=== PATIENT | male | born 1955 | race African-American/Black ===

== ENCOUNTER 2019-07-07 10:53 | Emergency (ER) | payer OTHER, SELFPAY ==
[2019-07-07 11:16] VITALS: BP 203/127; PULSE 109; RESP 16; TEMP 36.3; O2SAT 99; BMI 21.5
--- NOTE | 2019-07-07 11:44 | ED.LOWEXIN ---
HPI - Extremity Injury (Lower) General Chief Complaint: Extremity Injury, Lower Stated Complaint: leg pain,skin is drying up Time Seen by Provider: 07/07/19 11:38 Source: patient Mode of arrival: Ambulatory Limitations: no limitations History of Present Illness HPI Narrative: Patient is a 63-year-old male. Is followed in the [place] system. He does have a history of HIV. He is taking antiretrovirals. He states that he is currently taking his medicines. He does not know when his last viral load was done. Does not know when his last CD4 count was. He does have a follow-up with his primary doctor and his HIV provider at the beginning of next month which is next week. He comes the emergency department today for swelling and sores and redness to his lower extremities. He states these have been going on for the past several months. Does have some pain and some areas. No problems breathing. No trauma. Does have a history of hypertension but does not know the medicines that he is taking. Related Data Previous Rx's Medication Instructions Recorded amlodipine 10 mg PO DAILY #30 tab 07/07/19 Review of Systems Constitutional Constitutional: Denies fever(s) Cardiovascular Cardiovascular: Denies chest pain and Denies dyspnea Respiratory Respiratory: Denies dyspnea Gastrointestinal Gastrointestinal: Denies abdominal pain Musculoskeletal Musculoskeletal: Denies tingling Comments: Pain in the lower legs Integumentary/Breasts Comments: Sores in the lower legs Neurologic Neurologic: Denies burning sensations, Denies confusion, Denies tingling and Denies paresthesias Psychiatric Psychiatric: Denies confusion Hematologic/Lymphatic Hematologic/Lymphatic: Denies easy bleeding and Denies easy bruising FOR[facility]LY [facility], LAT[facility] Medical History HIV (human immunodeficiency virus infection) (Acute) Hypertension (Acute) Social History Smoking Status: Never smoker Social History Smoking Status: Never smoker Exam Initial Vital Signs Initial Vital Signs: Vital Signs Temperature 97.4 F L 07/07/19 11:16 Pulse Rate 109 H 07/07/19 11:16 Respiratory Rate 16 07/07/19 11:16 Blood Pressure 203/127 H 07/07/19 11:16 Pulse Oximetry 99 07/07/19 11:16 Const General: cooperative, comfortable and well developed Orientation: alert, awake and oriented x3 HENMT Head: normal to inspection and normocephalic Resp Effort & Inspection: normal respiratory effort Cardio Rate: regular rate Skin Other: Patient with redness to bilateral lower extremities distal to the knees to just distal to the ankles. He has several small superficial ulcerations to the area. Is not warm to the touch. No drainage. Neuro Cognition: normal cognition Speech: speech normal Sensory Exam: no sensory deficits noted Extrem Other: Mild swelling to bilateral lower extremities from the knees to the ankles Psych Appearance: grossly normal and well kempt Course Orders Ordered: ED Orders 07/07/19 11:46 Wound Culture and Gram Stain Stat 07/07/19 11:47 Wound Culture and Gram Stain Stat 07/07/19 12:00 Complete Blood Count AUTO DIFF Stat Comprehensive Metabolic Panel Stat Lactate (Lactic Acid) Stat Lipase Stat Procalcitonin Stat 07/07/19 12:37 Blood Culture Stat Discontinued Medications Bacitracin (Bacitracin) 1 applic TOP NOW ONE Stop: 07/07/19 13:24 Last Admin: 07/07/19 13:54 Dose: 1 applic Documented by: JADEN Vital Signs Vital signs: Vital Signs - 8 hr 07/07/19 11:16 07/07/19 13:49 Temperature 97.4 F L Pulse Rate 109 H 83 Respiratory Rate 16 16 Blood Pressure 203/127 H Blood Pressure [Left Arm] 150/135 H Pulse Oximetry 99 98 MDM - Extremity Injury (Lower) Lab Data Attestation: I reviewed the patient's lab results. Result diagrams: 07/07/19 12:00 07/07/19 12:00 Labs: Lab Results 07/07/19 07/07/19 07/07/19 Range/Units 12:00 12:00 12:00 WBC 4.1 L (4.5-11.0) X10^3/uL RBC 5.10 (4.5-5.9) X10^6/uL Hgb 15.5 (13.5-17.5) g/dL Hct 44.7 (41-53) % MCV 87.7 (80-100) fL MCH 30.4 (26-34) PG MCHC 34.6 (30-36) % RDW 14.4 (11.6-14.8) % Plt Count 256 (150-400) X10^3/uL Neut % (Auto) 74.1 (50-75) % Lymph % (Auto) 12.8 L (25-40) % [place] % (Auto) 8.9 (3-14) % Eos % (Auto) 2.8 (2-4) % Baso % (Auto) 1.4 (0-2) % Neut # (Auto) 3100 (8311-9645) /uL Lymph # (Auto) 500 L (3054-5852) /uL [place] # (Auto) 400 (0-900) /uL Eos # (Auto) 100 (0-450) /uL Baso # (Auto) 100 (0-100) /uL Sodium 143 (137-145) mmol/L Potassium 3.8 (3.4-5.1) mmol/L Chloride 102 (98-107) mmol/L Carbon Dioxide 29 (22-32) mmol/L BUN 14 (9-20) mg/dL Creatinine 1.40 H (0.66-1.25) mg/dL Estimated GFR 51.0 L (>60) mL/min BUN/Creatinine Ratio 10.0 (6-22) Glucose 97 (80-110) mg/dL Lactate (0.7-2.1) mmol/L Calcium 9.8 (8.4-10.2) mg/dL Total Bilirubin 0.4 (0.2-1.3) mg/dL AST 35 (17-59) IU/L ALT 29 (21-72) IU/L Alkaline Phosphatase 170 H (38-126) U/L Total Protein 8.3 H (6.3-8.2) g/dL Albumin 4.4 (3.5-5.0) g/dL Globulin 3.9 (1.7-4.1) g/dL Albumin/Globulin Ratio 1.1 (1.0-2.8) Lipase 155 (23-300) U/L Procalcitonin < 0.05 (<0.5) ng/mL 07/07/19 Range/Units 12:00 WBC (4.5-11.0) X10^3/uL RBC (4.5-5.9) X10^6/uL Hgb (13.5-17.5) g/dL Hct (41-53) % MCV (80-100) fL MCH (26-34) PG MCHC (30-36) % RDW (11.6-14.8) % Plt Count (150-400) X10^3/uL Neut % (Auto) (50-75) % Lymph % (Auto) (25-40) % [place] % (Auto) (3-14) % Eos % (Auto) (2-4) % Baso % (Auto) (0-2) % Neut # (Auto) (1993-7699) /uL Lymph # (Auto) (3907-1164) /uL [place] # (Auto) (0-900) /uL Eos # (Auto) (0-450) /uL Baso # (Auto) (0-100) /uL Sodium (137-145) mmol/L Potassium (3.4-5.1) mmol/L Chloride (98-107) mmol/L Carbon Dioxide (22-32) mmol/L BUN (9-20) mg/dL Creatinine (0.66-1.25) mg/dL Estimated GFR (>60) mL/min BUN/Creatinine Ratio (6-22) Glucose (80-110) mg/dL Lactate 1.1 (0.7-2.1) mmol/L Calcium (8.4-10.2) mg/dL Total Bilirubin (0.2-1.3) mg/dL AST (17-59) IU/L ALT (21-72) IU/L Alkaline Phosphatase (38-126) U/L Total Protein (6.3-8.2) g/dL Albumin (3.5-5.0) g/dL Globulin (1.7-4.1) g/dL Albumin/Globulin Ratio (1.0-2.8) Lipase (23-300) U/L Procalcitonin (<0.5) ng/mL MDM Narrative Medical decision making narrative: Patient has bilateral lower extremity changes which are more consistent with peripheral vascular disease versus cellulitis. His lactate was normal. Procalcitonin was normal. He states that he is still taking his anti-retroviral medications. States he has an appointment with his primary doctor and his HIV provider next week. Cultures were obtained from 1 wound on the right lower extremity and also on the left lower extremity however I feel we will hold on any antibiotics for now. He was given supplies to help him bandages legs. He was given return precautions. He does have a history of hypertension. He has been out of his amlodipine for the past several weeks. I will refill this. He states that he has prescriptions for all of his other medicines. Discharge Plan Departure Patient Disposition: Home Clinical Impression: Hypertension Qualifiers: Hypertension type: unspecified Qualified Code(s): I10 - Essential (primary) hypertension Skin ulcer Qualifiers: Non-pressure ulcer stage: limited to breakdown of skin Qualified Code(s): L98.491 - Non-pressure chronic ulcer of skin of other sites limited to breakdown of skin Instructions: DI for Pressure Sores Activity Restrictions/Additional Instructions: Start taking the blood pressure medication as directed. Keep all of your scheduled medical appointments. On Wednesday you can contact the wound Care Clinic here at the [facility] at [phone] however you may have to wait into you get a referral placed by your primary provider. It is important that she follow up with her primary provider next week as directed. Return to the emergency department for any new or worsening symptoms. You can shower like normal you can use soap and water like normal. Use the bandages that you were given here in the ER rather than tissue paper. You can take Tylenol and/or ibuprofen for any discomfort. Prescriptions: New amlodipine 10 mg tablet 10 mg PO DAILY Qty: 30 RF: 0
[2019-07-07 12:22] LABS: Add Manual Diff / Slide Review NO; Basophils Absolute Auto 100 /uL (0-100); Basophils Percent Auto 1.4 % (0-2); Eosinophils Absolute Auto 100 /uL (0-450); Eosinophils Percent Auto 2.8 % (2-4); Hematocrit 44.7 % (41-53); Hemoglobin 15.5 g/dL (13.5-17.5); Lymphocytes Absolute Auto 500 /uL (1100-4500); Lymphocytes Percent Auto 12.8 % (25-40); Mean Corpuscular HGB Conc 34.6 % (30-36); Mean Corpuscular Hemoglobin 30.4 PG (26-34); Mean Corpuscular Volume 87.7 fL (80-100); Monocytes Absolute Auto 400 /uL (0-900); Monocytes Percent Auto 8.9 % (3-14); Neutrophils Absolute Auto 3100 /uL (1500-7000); Neutrophils Percent Auto 74.1 % (50-75); Platelet Count 256 X10^3/uL (150-400); Red Cell Distribution Width 14.4 % (11.6-14.8); White Blood Cell Count 4.1 X10^3/uL (4.5-11.0)
--- NOTE | 2019-07-07 12:27 | PC.NURSE ---
Patient has acute on chronic lower extremity wounds secondary to scratching eczema. Has completed abx in past for wounds. Presents with bilaterally homemade dressing of paper around legs which is crusted to skin. Soaking legs bilaterally with warm washcloths to assist in removal of old dressing
[2019-07-07 12:29] LABS: Alanine Aminotransferase 29 IU/L (21-72); Albumin 4.4 g/dL (3.5-5.0); Albumin Globulin Ratio 1.1 (1.0-2.8); Alkaline Phosphatase 170 U/L (38-126); Aspartate Aminotransferase 35 IU/L (17-59); Bilirubin Total 0.4 mg/dL (0.2-1.3); Blood Urea Nitrogen 14 mg/dL (9-20); Calcium 9.8 mg/dL (8.4-10.2); Carbon Dioxide 29 mmol/L (22-32); Chloride 102 mmol/L (98-107); Globulin 3.9 g/dL (1.7-4.1); Glucose 97 mg/dL (80-110); HEMOLYSIS < 15 (0-50); Lipase 155 U/L (23-300); Potassium 3.8 mmol/L (3.4-5.1); Sodium 143 mmol/L (137-145); Total Protein 8.3 g/dL (6.3-8.2)
[2019-07-07 12:30] LABS: Lactate (Lactic Acid) 1.1 mmol/L (0.7-2.1)
[2019-07-07 12:49] LABS: Procalcitonin < 0.05 ng/mL (<0.5)
--- NOTE | 2019-07-07 13:24 | PC.NURSE ---
legs bilaterally cleaned, scrubbed off old dry tissue from legs. Patient tolerated well
[2019-07-07 13:49] VITALS: BP 150/135; PULSE 83; RESP 16; O2SAT 98
[2019-07-07] MEDS: BACITRACIN OINT 0.9 GM PCKT 1 APPLIC TOP (13:54)
--- NOTE | 2019-07-07 13:54 | PC.NURSE ---
provider aware of patient BP. Patient has not been taking antihypertensives
[2019-07-08 06:42] LABS: Enterococcus species Not Detected (Not Detect); Listeria monocytogenes Not Detected (Not Detect)
[2019-07-08 06:43] LABS: Acinetobacter baumannii Not Detected (Not Detect); Enterobacteriaceae species Not Detected (Not Detect); Methicillin-resistant gene Detected (Not Detect); Streptococcus agalactiae (Gr B Not Detected (Not Detect); Streptococcus pneumonia Not Detected (Not Detect); Streptococcus pyogenes (Gr A) Not Detected (Not Detect); Streptococcus species Not Detected (Not Detect)
--- NOTE | 2019-07-08 06:43 | PC.NURSE ---
Addendum entered by Sheree Ortega R.N. 07/08/19 07:12: I also notified DR Marlow. Original Note: Lab notified me of one positive blood culture with staph aureus just now.DR Boswell notified.
[2019-07-08 06:44] LABS: Candida albicans Not Detected (Not Detect); Candida glabrata Not Detected (Not Detect); Candida krusei Not Detected (Not Detect); Candida parapsilosis Not Detected (Not Detect); Candida tropicalis Not Detected (Not Detect); E. coli Not Detected (Not Detect); Enterobacter cloacae complex Not Detected (Not Detect); Haemophilus influenzae Not Detected (Not Detect); Neisseria meningitidis Not Detected (Not Detect); Proteus species Not Detected (Not Detect); Pseudomonas aeruginosa Not Detected (Not Detect); Serratia marcescens Not Detected (Not Detect)
--- NOTE | 2019-07-08 09:32 | PC.NURSE ---
Called number of record and spoke to Pt's mother. Pt's mother states she has not seen him in a few days. She has no other point of contact for him. Encouraged her to relay message to have pt return to ED for further care.
== END 2019-07-07 14:48 | disposition home or self-care (01) ==
PROVIDERS: Emergency Provider Emergency Medicine
DX: I10 Essential (primary) hypertension (principal); L98.491 Non-pressure chronic ulcer of skin of other sites limited to breakdown of skin
CPT/HCPCS: 36415; 80053; 83605; 83690; 84145; 85025; 87040; 87070; 87077; 87147; 87150; 87186; 87205; 99283

== ENCOUNTER 2019-07-08 10:14 | Emergency (ER) | payer OTHER, SELFPAY ==
[2019-07-08 10:26] VITALS: BP 199/140; PULSE 88; RESP 18; TEMP 36.7; O2SAT 98
--- NOTE | 2019-07-08 10:30 | DI.RAD.S_ITS ---
PROCEDURE: XR CHEST 1V INDICATIONS: suspected sepsis TECHNIQUE: One view of the chest was acquired. COMPARISON: None. FINDINGS: Surgical changes and devices: None. Lungs and pleura: Lungs are clear. No pleural effusions or pneumothorax. Mediastinum: Mediastinal contours appear normal. Heart size is normal. Bones and chest wall: No suspicious bony lesions. Overlying soft tissues appear unremarkable. IMPRESSION: 1. No acute cardiopulmonary disease. Dictated by: Amos Salazar M.D. on 07/08/2019 at 9:59 Approved by: Amos Salazar M.D. on 07/08/2019 at 10:00
[2019-07-08 10:59] LABS: Add Manual Diff / Slide Review NO; Basophils Absolute Auto 0 /uL (0-100); Basophils Percent Auto 1.1 % (0-2); Eosinophils Absolute Auto 100 /uL (0-450); Hematocrit 42.6 % (41-53); Hemoglobin 14.8 g/dL (13.5-17.5); Lymphocytes Absolute Auto 700 /uL (1100-4500); Lymphocytes Percent Auto 17.9 % (25-40); Mean Corpuscular HGB Conc 34.9 % (30-36); Mean Corpuscular Hemoglobin 30.6 PG (26-34); Mean Corpuscular Volume 87.8 fL (80-100); Monocytes Absolute Auto 500 /uL (0-900); Neutrophils Absolute Auto 2700 /uL (1500-7000); Platelet Count 267 X10^3/uL (150-400); Red Blood Cell Count 4.85 X10^6/uL (4.5-5.9); Red Cell Distribution Width 14.6 % (11.6-14.8)
[2019-07-08 11:06] LABS: INR 1.1 (0.9-1.3); Prothrombin Time 12.8 SECONDS (10.1-12.7)
[2019-07-08 11:08] LABS: PTT Partial Thromboplastin Tim 36 SECONDS (26.4-36.2)
--- NOTE | 2019-07-08 11:26 | ED_ITS ---
HPI - Recheck/Abnormal Lab/Rx General Chief Complaint: Recheck/Abnormal Lab/Rx Stated Complaint: COMING BACK FOR RESULTS ON TESTS Time Seen by Provider: 07/08/19 10:45 Source: patient Mode of arrival: Ambulatory Limitations: no limitations History of Present Illness HPI narrative: Patient is a 63-year-old male HIV positive and hypertension presenting upon our request. He was seen evaluated here with hypertension and chronic lower extremity venous stasis however 1 of the 2 blood cultures returned MRSA positive. He states that his legs have been hurting more over the last few days they do drain some. He has not had any fevers or chills. He has been out of his blood pressure medication for at least 4 or 5 days but states that he is compliant with his HIV medications. His blood pressure is noted to be elevated he is having some headache he has no chest pain or shortness of breath. He is currently afebrile. MD complaint: wound re-check Related Data Home Medications Medication Instructions Recorded Confirmed Lactobacillus acidophilus 1 cap PO BID 07/07/19 07/07/19 cholecalciferol (vitamin D3) 1,000 unit PO DAILY 07/07/19 07/07/19 [Vitamin D3] [id number] alafen 1 tab PO DAILY 07/07/19 07/07/19 [Genvoya] hydrophilic cream 1 applic TOPICAL DAILY 07/07/19 07/07/19 hydroxyzine HCl 25 mg PO QID PRN 07/07/19 07/07/19 nicotine 1 patch TRANSDERMAL Q24H 07/07/19 07/07/19 Previous Rx's Medication Instructions Recorded amlodipine 10 mg PO DAILY #30 tab 07/07/19 Allergies Allergy/AdvReac Type Severity Reaction Status Date / Time No Known Drug Allergies Allergy Verified 07/07/19 14:30 Review of Systems Review of Systems ROS Unobtainable: All systems reviewed & are unremarkable except as noted in HPI and below Constitutional Constitutional: Denies chills, Denies fever(s), Denies lethargy and Denies weakness Eyes Eyes: Denies change in vision, Denies eye discharge, Denies irritation and Denies loss of vision ENT Ears, Nose, Mouth, and Throat: Denies change in voice, Denies neck pain and Denies sore throat Cardiovascular Cardiovascular: Denies chest pain, Denies irregular heart rhythm, Denies lightheadedness, Denies palpitations, Denies dyspnea, Denies dyspnea on exertion and Denies orthopnea Respiratory Respiratory: Denies cough, Denies dyspnea, Denies dyspnea on exertion and Denies wheezing Genitourinary Genitourinary: Denies hematuria, Denies flank pain, Denies urinary incontinence and Denies urinary urgency Musculoskeletal Musculoskeletal: Denies neck pain Integumentary/Breasts Skin/Breast: Reports system reviewed and no additional complaints, except as docu Neurologic Neurologic: Denies loss of vision and Denies weakness Endocrine Endocrine: Denies palpitations Allergic/Immunologic Allergic/Immunologic: Denies wheezing [facility] Medical History HIV (human immunodeficiency virus infection) (Acute) Hypertension (Acute) Social History Smoking Status: Never smoker Social History Smoking Status: Never smoker Exam Initial Vital Signs Initial Vital Signs: Vital Signs Temperature 98.0 F 07/08/19 10:26 Pulse Rate 88 07/08/19 10:26 Respiratory Rate 18 07/08/19 10:26 Blood Pressure 199/140 H 07/08/19 10:26 Pulse Oximetry 98 07/08/19 10:26 GENERAL: Well-appearing, well-nourished and in no acute distress. HEENT: Head atraumatic,EOMI, pupils reactive, face symmetric CARDIOVASCULAR: Regular rate and rhythm without murmurs, rubs or gallops. RESPIRATORY: Breath sounds equal bilaterally, no wheezes rales or rhonchi. ABDOMEN: Soft, nontender. Normoactive bowel sounds all 4 quadrants. No guarding or rebound. EXTREMITIES: Normal range of motion, no clubbing or edema. Neurovascularly intact NEUROLOGICAL: Alert and oriented x4.Normal gait and speech. Cranial nerves II through XII grossly intact. SKIN: Chronic venous stasis 6 scaly skin noted on bilateral lower extremities mildly erythematous no gross pus from sores noted Course Orders Ordered: ED Orders 07/08/19 10:30 XR chest 1V Stat 07/08/19 10:38 Blood Culture Stat 07/08/19 10:42 Complete Blood Count AUTO DIFF Stat Comprehensive Metabolic Panel Stat Lactate (Lactic Acid) Stat Lipase Stat Partial Thromboplastin Time Stat Procalcitonin Stat Prothrombin Time INR Stat 07/08/19 11:43 Urine Microscopic Stat 07/08/19 13:27 [facility] Miscellaneous Stat 07/08/19 13:29 [facility] Miscellaneous Stat Discontinued Medications Amlodipine Besylate (Norvasc) 10 mg PO NOW ONE Stop: 07/08/19 12:41 Last Admin: 07/08/19 12:52 Dose: 10 mg Documented by: SAMUEL Vancomycin HCl (Vancomycin) 1,000 mg in 200 mls @ 200 mls/hr IV NOW ONE Stop: 07/08/19 12:45 Last Infusion: 07/08/19 13:30 Dose: 0 mls/hr Documented by: Admin: 07/08/19 12:16 Dose: 200 mls/hr Documented by: SAMUEL Ketorolac Tromethamine (Toradol) 15 mg IV NOW ONE Stop: 07/08/19 12:49 Last Admin: 07/08/19 12:53 Dose: 15 mg Documented by: SAMUEL Labetalol HCl (Trandate) 5 mg IV NOW ONE Stop: 07/08/19 12:41 Last Admin: 07/08/19 12:52 Dose: 5 mg Documented by: SAMUEL Consultations Consultation #1: Dr. James updated on patient test results and current symptoms requests that patient be transferred to another facility 1 infectious Disease is readily available Time: 13:18 Consultation #2: Dr. Obrien, Infectious disease agrees with transfer admit to hospitalist Time: 13:34 Consultation #3: Dr. cummins hospitalist at [facility] at accepts patient for transfer Time: 13:34 Vital Signs Vital signs: Vital Signs - 8 hr 07/08/19 10:26 07/08/19 12:31 07/08/19 12:52 Temperature 98.0 F Pulse Rate 88 97 H 97 H Respiratory Rate 18 18 Blood Pressure 199/140 H 190/140 H Blood Pressure [Right Arm] 190/140 H Pulse Oximetry 98 97 07/08/19 13:30 07/08/19 14:32 Temperature Pulse Rate 90 91 H Respiratory Rate 16 Blood Pressure 169/125 H Blood Pressure [Right Arm] 174/135 H Pulse Oximetry 96 MDM - Recheck/Abnormal Lab/Rx Lab Data Attestation: I reviewed the patient's lab results. Result diagrams: 07/08/19 10:42 07/08/19 10:42 Labs: Lab Results 07/08/19 07/08/19 07/08/19 Range/Units 10:42 10:42 10:42 WBC 4.0 L (4.5-11.0) X10^3/uL RBC 4.85 (4.5-5.9) X10^6/uL Hgb 14.8 (13.5-17.5) g/dL Hct 42.6 (41-53) % MCV 87.8 (80-100) fL MCH 30.6 (26-34) PG MCHC 34.9 (30-36) % RDW 14.6 (11.6-14.8) % Plt Count 267 (150-400) X10^3/uL Neut % (Auto) 66.0 (50-75) % Lymph % (Auto) 17.9 L (25-40) % [place] % (Auto) 12.0 (3-14) % Eos % (Auto) 3.0 (2-4) % Baso % (Auto) 1.1 (0-2) % Neut # (Auto) 2700 (6875-2709) /uL Lymph # (Auto) 700 L (3976-7233) /uL [place] # (Auto) 500 (0-900) /uL Eos # (Auto) 100 (0-450) /uL Baso # (Auto) 0 (0-100) /uL PT 12.8 H (10.1-12.7) SECONDS INR 1.1 (0.9-1.3) APTT 36 (26.4-36.2) SECONDS Sodium (137-145) mmol/L Potassium (3.4-5.1) mmol/L Chloride (98-107) mmol/L Carbon Dioxide (22-32) mmol/L BUN (9-20) mg/dL Creatinine (0.66-1.25) mg/dL Estimated GFR (>60) mL/min BUN/Creatinine Ratio (6-22) Glucose (80-110) mg/dL Lactate (0.7-2.1) mmol/L Calcium (8.4-10.2) mg/dL Total Bilirubin (0.2-1.3) mg/dL AST (17-59) IU/L ALT (21-72) IU/L Alkaline Phosphatase (38-126) U/L Total Protein (6.3-8.2) g/dL Albumin (3.5-5.0) g/dL Globulin (1.7-4.1) g/dL Albumin/Globulin Ratio (1.0-2.8) Lipase (23-300) U/L Procalcitonin < 0.05 (<0.5) ng/mL Urine RBC (0-5/HPF) Urine WBC (0-5/HPF) Urine Bacteria (None) Ur Culture Indicated? 07/08/19 07/08/19 07/08/19 Range/Units 10:42 10:42 11:43 WBC (4.5-11.0) X10^3/uL RBC (4.5-5.9) X10^6/uL Hgb (13.5-17.5) g/dL Hct (41-53) % MCV (80-100) fL MCH (26-34) PG MCHC (30-36) % RDW (11.6-14.8) % Plt Count (150-400) X10^3/uL Neut % (Auto) (50-75) % Lymph % (Auto) (25-40) % [place] % (Auto) (3-14) % Eos % (Auto) (2-4) % Baso % (Auto) (0-2) % Neut # (Auto) (2862-7259) /uL Lymph # (Auto) (5280-5674) /uL [place] # (Auto) (0-900) /uL Eos # (Auto) (0-450) /uL Baso # (Auto) (0-100) /uL PT (10.1-12.7) SECONDS INR (0.9-1.3) APTT (26.4-36.2) SECONDS Sodium 138 (137-145) mmol/L Potassium 4.0 (3.4-5.1) mmol/L Chloride 99 (98-107) mmol/L Carbon Dioxide 30 (22-32) mmol/L BUN 20 (9-20) mg/dL Creatinine 1.50 H (0.66-1.25) mg/dL Estimated GFR 47.1 L (>60) mL/min BUN/Creatinine Ratio 13.3 (6-22) Glucose 97 (80-110) mg/dL Lactate 1.1 (0.7-2.1) mmol/L Calcium 9.8 (8.4-10.2) mg/dL Total Bilirubin 0.5 (0.2-1.3) mg/dL AST 36 (17-59) IU/L ALT 23 (21-72) IU/L Alkaline Phosphatase 143 H (38-126) U/L Total Protein 7.9 (6.3-8.2) g/dL Albumin 4.1 (3.5-5.0) g/dL Globulin 3.8 (1.7-4.1) g/dL Albumin/Globulin Ratio 1.1 (1.0-2.8) Lipase 115 (23-300) U/L Procalcitonin (<0.5) ng/mL Urine RBC 1-5/hpf (0-5/HPF) Urine WBC None seen (0-5/HPF) Urine Bacteria None seen (None) Ur Culture Indicated? Cult not indicated Urine Dip Bedside Urine Glucose Negative Bedside Urine Bilirubin - Negative Bedside Urine Ketone - Negative Urine Specific [place] 1.015 Bedside Urine Occult Blood +/- Bedside Urine pH 7.0 Bedside Urine Protein + 30 Bedside Urine Urobilinogen - Negative Bedside Urine Nitrite - Negative Bedside Urine Leukocytes - Negative Esterase MDM Narrative Medical decision making narrative: The patient is hemodynamically stable negative lactic acid normal WBC does not appear septic. However he does have 1 confirmed positive MRSA blood cultures. Patient will be transferred to [facility] for Infectious Disease and other further specialtys. His blood pressure remains uncontrolled he is given 1 dose of the blood pressure medication amlodipine and 1 small dose of labetalol. He was complaining of a small headache which has improved after his blood pressure improved. Discharge Plan Departure Patient Disposition: [facility] Clinical Impression: Bacteremia due to methicillin resistant Staphylococcus aureus Discharge Date/Time: 07/08/19 14:40 Prescriptions: No Action amlodipine 10 mg tablet 10 mg PO DAILY Qty: 30 RF: 0 hydroxyzine HCl 25 mg Tablet 25 mg PO QID PRN (Reason: Itching) RF: 0 Lactobacillus acidophilus Capsule 1 cap PO BID RF: 0 nicotine 7 mg/24 hr Patch 24 Hour 1 patch TRANSDERMAL Q24H RF: 0 hydrophilic cream Cream 1 applic TOPICAL DAILY RF: 0 cholecalciferol (vitamin D3) [Vitamin D3] 1,000 unit (25 mcg) Tablet 1,000 unit PO DAILY RF: 0 Genvoya [id number] mg Tablet 1 tab PO DAILY RF: 0
[2019-07-08 11:28] LABS: Lactate (Lactic Acid) 1.1 mmol/L (0.7-2.1)
[2019-07-08 11:29] LABS: Alanine Aminotransferase 23 IU/L (21-72); Albumin 4.1 g/dL (3.5-5.0); Albumin Globulin Ratio 1.1 (1.0-2.8); Alkaline Phosphatase 143 U/L (38-126); Aspartate Aminotransferase 36 IU/L (17-59); BUN Creatinine Ratio 13.3 (6-22); Bilirubin Total 0.5 mg/dL (0.2-1.3); Blood Urea Nitrogen 20 mg/dL (9-20); Calcium 9.8 mg/dL (8.4-10.2); Carbon Dioxide 30 mmol/L (22-32); Chloride 99 mmol/L (98-107); Estimated Glomerular Filt Rate 47.1 mL/min (>60); Globulin 3.8 g/dL (1.7-4.1); Glucose 97 mg/dL (80-110); HEMOLYSIS < 15 (0-50); Lipase 115 U/L (23-300); Sodium 138 mmol/L (137-145); Total Protein 7.9 g/dL (6.3-8.2)
[2019-07-08 11:49] LABS: Procalcitonin < 0.05 ng/mL (<0.5)
[2019-07-08] MEDS: VANCOMYCIN 1,000 MG/200 ML PIGGYBACK 200 MG IV (12:16)
[2019-07-08 12:31] VITALS: BP 190/140; PULSE 97; RESP 18; O2SAT 97
[2019-07-08 12:52] VITALS: BP 190/140; PULSE 97
[2019-07-08] MEDS: LABETALOL 20 MG/4 ML SYRINGE 5 MG IV (12:52)
[2019-07-08] MEDS: AMLODIPINE 2.5 MG TABLET 10 MG PO (12:52)
[2019-07-08] MEDS: KETOROLAC 60 MG/2 ML VIAL 15 MG IV (12:53)
[2019-07-08 12:56] LABS: Bacteria Urine None Seen; WBC Urine None Seen (0-5/HPF)
[2019-07-08 13:17] LABS: Culture Indicated Urine Cult Not Indicated; RBC Urine 1-5/HPF (0-5/HPF)
[2019-07-08 13:30] VITALS: BP 169/125; PULSE 90
[2019-07-08 14:32] VITALS: BP 174/135; PULSE 91; RESP 16; O2SAT 96
== END 2019-07-08 14:40 | disposition short-term general hospital (02) ==
PROVIDERS: Emergency Provider Emergency Medicine
DX: R78.81 Bacteremia (principal); A49.02 Methicillin resistant Staphylococcus aureus infection, unspecified site; Z21 Asymptomatic human immunodeficiency virus [HIV] infection status
CPT/HCPCS: 36415; 71045; 80053; 81003; 81015; 83605; 83690; 84145; 85025; 85610; 85730; 87040; 96365; 96375; 99283; 99284; J1885

== ENCOUNTER 2021-07-27 17:40 | Emergency (ER) | payer OTHER, SELFPAY ==
[2021-07-27] VITALS (17 sets, daily range): BP systolic 168–209; BP diastolic 114–144; PULSE 85–107; RESP 15–25; TEMP 36.2–36.3; O2SAT 91–98; BMI 23.8
--- NOTE | 2021-07-27 17:49 | DI.RAD.S_ITS ---
PROCEDURE: XR CHEST 1V INDICATIONS: chest pain TECHNIQUE: One view of the chest was acquired. COMPARISON: [facility], CR, XR CHEST 1V, 07/08/2019, 10:41. FINDINGS: Surgical changes and devices: None. Lungs and pleura: Lungs are clear. No pleural effusions or pneumothorax. Mediastinum: Mediastinal contours appear normal. Heart size is normal. Bones and chest wall: No suspicious bony lesions. Overlying soft tissues appear unremarkable. IMPRESSION: No acute cardiopulmonary disease. Dictated by: Dannielle Flores M.D. on 07/27/2021 at 18:23 Approved by: Dannielle Flores M.D. on 07/27/2021 at 18:23
--- NOTE | 2021-07-27 18:09 | ED_ITS ---
HPI - Overdose General Chief Complaint: Toxicology Problem Stated Complaint: Overdose Time Seen by Provider: 07/27/21 17:49 Source: patient Mode of arrival: Family Vehicle Limitations: no limitations History of Present Illness HPI Narrative: 65M smoker with hypertension presents by EMS for evaluation of an accidental overdose. Patient reports that a friend offered a [place] smoke something off his pipe which she later found out was fentanyl. He felt quite good briefly and then gradually became unresponsive and stopped breathing. EMS was activated and the call when out as a CPR in progress, he was promptly given Narcan and woke up quickly. He denies any headache or blurred vision. He has no chest pain or shortness of breath. He denies any nausea, vomiting or diarrhea. He denies any difficulty in breathing and is otherwise well and free of complaint. He has not taken his medications yet tonight Related Data Home Medications Medication Instructions Recorded Confirmed Lactobacillus acidophilus 1 cap PO BID 07/07/19 07/07/19 cholecalciferol (vitamin D3) 25 1,000 unit PO DAILY 07/07/19 07/07/19 mcg (1,000 unit) tablet (Vitamin D3) elviteg 150 mg-cob 150 mg-emtricit 1 tab PO DAILY 07/07/19 07/07/19 200 mg-tenofo alafenam 10 mg tablet (Genvoya) hydrophilic cream 1 applic TOPICAL DAILY 07/07/19 07/07/19 hydroxyzine HCl 25 mg tablet 25 mg PO QID PRN 07/07/19 07/07/19 nicotine 7 mg/24 hr daily 1 patch TRANSDERMAL Q24H 07/07/19 07/07/19 transdermal patch Previous Rx's Medication Instructions Recorded amlodipine 10 mg tablet 10 mg PO DAILY #30 tab 07/07/19 Allergies Allergy/AdvReac Type Severity Reaction Status Date / Time No Known Drug Allergies Allergy Verified 07/07/19 14:30 Review of Systems Review of Systems Narrative: GENERAL: Denies chills, fatigue, malaise, fever, sweats. HEENT: Denies sinus pain, ear pain, sore throat, difficulty swallowing, dizziness. RESPIRATORY: Denies dyspnea, cough, wheezing, hemoptysis, sputum. CARDIOVASCULAR: Denies chest pain, palpitations, orthopnea, edema, GASTROINTESTINAL: Denies nausea, vomiting, abdominal pain, diarrhea, constipation, melena. : Denies dysuria, frequency, incontinence, hematuria, urinary retention. MUSCULOSKELETAL: denies weakness, joint pain, or bony pain SKIN: Denies rash, skin lesions, or other NEUROLOGIC: Denies weakness, headache, numbness, change in speech, confusion, seizures, incoordination. PSYCHIATRIC: No concerning psychosocial issues. 12 point review of systems is negative except for those stated above Patient History Medical History HIV (human immunodeficiency virus infection) Hypertension Social History Smoking Status: Never smoker Smoking Status: Never smoker alcohol intake frequency: holidays/special occasions only Substance Use Type: does not use Exam Narrative Exam Narrative: GENERAL: [65 year old patient appears stated age. Well-developed patient, in mild distress. HEAD: Atraumatic. Normocephalic. EYES: Pupils equal round and reactive. Extraocular motions intact. No scleral icterus. No injection or drainage. ENT: Nose without bleeding, purulent drainage. Throat without erythema, tonsillar hypertrophy or exudate. Airway patent. NECK: Trachea midline. Non tender CARDIOVASCULAR: Regular rate and rhythm without murmurs, gallops, or rubs. RESPIRATORY: Clear to auscultation. Breath sounds equal bilaterally. No wheezes, rales, or rhonchi. GASTROINTESTINAL: Abdomen soft, non-tender, nondistended. EXTREMITIES: No edema or joint tenderness. BACK: Nontender without deformity or crepitance. No flank tenderness. NEURO: AOx3. SKIN: No rash or erythema of visible areas Initial Vital Signs Initial Vital Signs: Vital Signs Temperature 97.3 F L 07/27/21 17:43 Pulse Rate 107 H 07/27/21 17:43 Respiratory Rate 18 07/27/21 17:43 Blood Pressure 209/144 H 07/27/21 17:43 Pulse Oximetry 95 07/27/21 17:43 Course Orders Ordered: ED Orders 07/27/21 18:15 Urine Drug Screen, Rapid Stat Discontinued Medications Labetalol HCl (Labetalol 20 Mg/4 Ml Syringe) 10 mg IV NOW ONE Stop: 07/27/21 19:34 Last Admin: 07/27/21 19:38 Dose: 10 mg Documented by: RYANNE Reevaluation(s) Reevaluation #1: Patient continues to rest comfortably, easily arousable, speaking clearly in able to ambulate a straight line without difficulty. Though his blood pressure is elevated he continues to be completely asymptomatic. He has not yet taken his nighttime medications. Vital Signs Vital signs: Vital Signs - 8 hr 07/27/21 19:15 07/27/21 19:30 07/27/21 19:38 Temperature Pulse Rate 101 H 99 H Respiratory Rate 21 25 H Blood Pressure 170/122 H 172/122 H Pulse Oximetry 96 94 07/27/21 19:42 07/27/21 19:45 07/27/21 19:50 Temperature Pulse Rate 98 H 94 H 89 Respiratory Rate 21 16 15 Blood Pressure 180/121 H 168/114 H 185/130 H Pulse Oximetry 96 94 92 07/27/21 19:55 07/27/21 20:00 07/27/21 20:11 Temperature 97.2 F L Pulse Rate 87 85 Respiratory Rate 19 17 Blood Pressure 172/116 H 176/123 H Pulse Oximetry 91 MDM - Overdose Lab Data Result diagrams: 07/27/21 17:45 07/27/21 17:45 Labs: Lab Results 07/27/21 07/27/21 07/27/21 Range/Units 17:45 17:45 18:15 WBC 4.5 (4.5-11.0) X10^3/uL RBC 5.26 (4.5-5.9) X10^6/uL Hgb 15.9 (13.5-17.5) g/dL Hct 46.9 (41-53) % MCV 89.1 (80-100) fL MCH 30.3 (26-34) PG MCHC 34.0 (30-36) % RDW 15.4 H (11.6-14.8) % Plt Count 219 (150-400) X10^3/uL Neut % (Auto) 64.8 (50-75) % Lymph % (Auto) 18.5 L (25-40) % [place] % (Auto) 11.6 (3-14) % Eos % (Auto) 4.2 H (2-4) % Baso % (Auto) 0.9 (0-2) % Neut # (Auto) 2900 (0163-6401) /uL Lymph # (Auto) 800 L (9241-4817) /uL [place] # (Auto) 500 (0-900) /uL Eos # (Auto) 200 (0-450) /uL Baso # (Auto) 0 (0-100) /uL RBC Morphology Normal morphology Sodium 144 (137-145) mmol/L Potassium 4.2 (3.4-5.1) mmol/L Chloride 105 (98-107) mmol/L Carbon Dioxide 27 (22-32) mmol/L BUN 16 (9-20) mg/dL Creatinine 1.88 H (0.66-1.25) mg/dL Estimated GFR 36.1 L (>60) mL/min BUN/Creatinine Ratio 8.5 (6-22) Glucose 79 L (80-110) mg/dL Calcium 10.3 H (8.4-10.2) mg/dL Total Bilirubin 0.5 (0.2-1.3) mg/dL AST 36 (17-59) IU/L ALT 38 (<50) IU/L Alkaline Phosphatase 150 H (38-126) U/L Total Creatine Kinase 149 (55-170) U/L CK-MB (CK-2) 2.07 (<2.37) ng/mL CK-MB (CK-2) Rel Index 1.4 L (1.5-5.0) % Troponin I 0.017 (0.01-0.034) ng/mL Total Protein 8.7 H (6.3-8.2) g/dL Albumin 5.0 (3.5-5.0) g/dL Globulin 3.7 (1.7-4.1) g/dL Albumin/Globulin Ratio 1.4 (1.0-2.8) Lipase 279 (23-300) U/L U Opiates 300ng/mL cut Negative (Negative) Ur Oxycodone Screen Negative (Negative) Urine Methadone Screen Negative (Negative) Ur Barbiturates Screen Negative (Negative) U Tricyclic Antidepress Negative (Negative) Ur Phencyclidine Scrn Negative (Negative) Ur Amphetamines Screen Positive H (Negative) U Methamphetamines Scrn Positive H (Negative) Ur MDMA Scrn (Ecstasy) Negative (Negative) U Benzodiazepines Scrn Negative (Negative) Urine Cocaine Screen Negative (Negative) U Marijuana (THC) Screen Positive H (Negative) Imaging Data Chest x-ray: Radiologist's Impression: [address] [address] XRay Report Signed Patient: Campbell Pierson MR#: [id number] : 1955 Acct:[id number] Age/Sex: 65 / M Date of Service: 07/27/21 Loc: ED Accession Number: [id number] ?? Procedure: XR chest 1V Ordering Provider: Portia Marlow D.O. PROCEDURE:? XR CHEST 1V ? INDICATIONS:? chest pain ? TECHNIQUE:? One view of the chest was acquired.? ? COMPARISON:? [facility], CR, XR CHEST 1V, 07/08/2019, 10:41. ? FINDINGS:? ? Surgical changes and devices:? None.? ? Lungs and pleura:? Lungs are clear.? No pleural effusions or pneumothorax.? ? Mediastinum:? Mediastinal contours appear normal.? Heart size is normal.? ? Bones and chest wall:? No suspicious bony lesions.? Overlying soft tissues appear unremarkable.? ? IMPRESSION:? No acute cardiopulmonary disease. ? ? ? Dictated by: Dannielle Flores M.D. on 07/27/2021 at 18:23 ? ? Approved by: Dannielle Flores M.D. on 07/27/2021 at 18:23 ? MDM Narrative Medical decision making narrative: Patient had accidental overdose to fentanyl, reversed by Narcan. Observed for a few hours and had maintained his baseline. No chest pain or shortness of breath. Though his blood pressure had been creeping up he has no symptoms consistent with hypertensive issue, given the elevation of his diastolic he was given some labetalol here and encouraged to go home and take his own medications. Return precautions given and questions answered to his apparent satisfaction Discharge Plan Departure Patient Disposition: Home Clinical Impression: Accidental fentanyl overdose Qualifiers: Encounter type: initial encounter Qualified Code(s): T40.411A - Poisoning by fentanyl or fentanyl analogs, accidental (unintentional), initial encounter Hypertension Qualifiers: Hypertension type: unspecified Qualified Code(s): I10 - Essential (primary) hypertension Instructions: Essential Hypertension, DI for Substance Use Disorder Activity Restrictions/Additional Instructions: *You have been diagnosed with [accidental overdose, hypertension ] *What to do: *Please continue to take your regular medications as directed. [ ] New medication prescriptions sent to your pharmacy: [ ] [ ] New medication written as a paper prescription [x ] No new medications given *Please follow up with your primary care provider in 2-3 days, call for an appointment. Let them know you were seen in the Emergency Department and that we ask that you be seen in follow up. We will electronically transmit a record of today's note if your PCP is in our system *If you do not have a primary care provider please contact the [facility] Resource line at [phone]. They will ask some questions about your medical history and help get you set up with a doctor in the community. *Return to Emergency Department if you should have any new, worsening or concerning symptoms, such as [fever greater than 101 F, shaking chills, worsening pain, persistent vomiting or other bothersome symptoms] Prescriptions: No Action amlodipine 10 mg tablet 10 mg PO DAILY Qty: 30 RF: 0 hydroxyzine HCl 25 mg Tablet 25 mg PO QID PRN (Reason: Itching) RF: 0 Lactobacillus acidophilus Capsule 1 cap PO BID RF: 0 nicotine 7 mg/24 hr Patch 24 Hour 1 patch TRANSDERMAL Q24H RF: 0 hydrophilic cream Cream 1 applic TOPICAL DAILY RF: 0 cholecalciferol (vitamin D3) [Vitamin D3] 1,000 unit (25 mcg) Tablet 1,000 unit PO DAILY RF: 0 Genvoya [phone] mg Tablet 1 tab PO DAILY RF: 0
[2021-07-27 18:17] LABS: Basophils Absolute Auto 0 /uL (0-100); Basophils Percent Auto 0.9 % (0-2); Eosinophils Absolute Auto 200 /uL (0-450); Eosinophils Percent Auto 4.2 % (2-4); Hematocrit 46.9 % (41-53); Hemoglobin 15.9 g/dL (13.5-17.5); Lymphocytes Absolute Auto 800 /uL (1100-4500); Lymphocytes Percent Auto 18.5 % (25-40); Mean Corpuscular Hemoglobin 30.3 PG (26-34); Mean Corpuscular Volume 89.1 fL (80-100); Monocytes Absolute Auto 500 /uL (0-900); Monocytes Percent Auto 11.6 % (3-14); Neutrophils Absolute Auto 2900 /uL (1500-7000); Neutrophils Percent Auto 64.8 % (50-75); Platelet Count 219 X10^3/uL (150-400); Red Blood Cell Count 5.26 X10^6/uL (4.5-5.9); Red Cell Distribution Width 15.4 % (11.6-14.8); White Blood Cell Count 4.5 X10^3/uL (4.5-11.0)
[2021-07-27 18:22] LABS: Alanine Aminotransferase 38 IU/L (<50); Albumin Globulin Ratio 1.4 (1.0-2.8); Alkaline Phosphatase 150 U/L (38-126); Aspartate Aminotransferase 36 IU/L (17-59); BUN Creatinine Ratio 8.5 (6-22); Bilirubin Total 0.5 mg/dL (0.2-1.3); Blood Urea Nitrogen 16 mg/dL (9-20); Calcium 10.3 mg/dL (8.4-10.2); Carbon Dioxide 27 mmol/L (22-32); Chloride 105 mmol/L (98-107); Creatine Kinase 149 U/L (55-170); Estimated Glomerular Filt Rate 36.1 mL/min (>60); Globulin 3.7 g/dL (1.7-4.1); Glucose 79 mg/dL (80-110); HEMOLYSIS < 15 (0-50); Lipase 279 U/L (23-300); Potassium 4.2 mmol/L (3.4-5.1); Sodium 144 mmol/L (137-145); Total Protein 8.7 g/dL (6.3-8.2)
--- NOTE | 2021-07-27 18:30 | PC.NURSE ---
Pt ambulatory to bathroom with independent, steady gait. Resps e/u, remains A&Ox4, GCS 15.
[2021-07-27 18:31] LABS: Ur Creatinine Normal (Normal); Ur Specific Gravity Normal (Normal); Urine pH Normal (Normal)
[2021-07-27 18:32] LABS: UR Morphine/Opiate cutoff 300 Negative (Negative); Urine Amphetamines Positive (Negative); Urine Barbiturates Negative (Negative); Urine Benzodiazepines Negative (Negative); Urine Cocaine Negative (Negative); Urine MDMA Negative (Negative); Urine Methadone Negative (Negative); Urine Methamphetamines Positive (Negative); Urine Oxycodone Negative (Negative); Urine Phencyclidine Negative (Negative); Urine Tetrahydrocannabinol Positive (Negative); Urine Tricyclic Antidepressant Negative (Negative)
[2021-07-27 18:34] LABS: Troponin I 0.017 ng/mL (0.01-0.034)
[2021-07-27 18:37] LABS: CKMB % Relative Index 1.4 % (1.5-5.0); Creatine Kinase MB 2.07 ng/mL (<2.37)
[2021-07-27 18:45] LABS: Add Manual Diff / Slide Review SLIDE REVIEW
[2021-07-27 18:46] LABS: RBC Morphology Normal Morphology
--- NOTE | 2021-07-27 18:52 | PC.NURSE ---
Rounded on this pt to reassess his VS. He is eager to leave, asking how long he needs to stay. Informed him that he is still within the window of observation. HR and BP remain elevated. Alert and oriented as before.
[2021-07-27] MEDS: LABETALOL 20 MG/4 ML SYRINGE 10 MG IV (19:38)
== END 2021-07-27 20:12 | disposition home or self-care (01) ==
PROVIDERS: Emergency Medicine; Emergency Provider Emergency Medicine
DX: T40.411A Poisoning by fentanyl or fentanyl analogs, accidental (unintentional), initial encounter (principal); I10 Essential (primary) hypertension
CPT/HCPCS: 36415; 71045; 80053; 80305; 82550; 82553; 83690; 84484; 85025; 93005; 93010; 96374; 99284

== ENCOUNTER 2023-01-22 13:28 | Emergency (ER) | payer OTHER, SELFPAY ==
[2023-01-22] VITALS (21 sets, daily range): BP systolic 138–171; BP diastolic 94–106; PULSE 91–105; RESP 14–24; TEMP 36.7; O2SAT 94–100
--- NOTE | 2023-01-22 13:47 | DI.RAD.S_ITS ---
PROCEDURE: XR CHEST 1V INDICATIONS: chest pain TECHNIQUE: One view of the chest was acquired. COMPARISON: [facility], CR, XR CHEST 1V, 07/08/2019, 10:41. [facility], CR, XR CHEST 1V, 07/27/2021, 17:57. FINDINGS: Surgical changes and devices: None. Lungs and pleura: Lungs are clear. No pleural effusions or pneumothorax. Mediastinum: The cardiac contours are within normal limits. The aorta demonstrates calcification and tortuosity. Bones and chest wall: No suspicious bony lesions. Age-appropriate bony degenerative changes are seen. Overlying soft tissues appear unremarkable. IMPRESSION: Portable chest study within normal limits for age. Dictated by: Tutu Mccarthy M.D. on 01/22/2023 at 13:11 Approved by: Tutu Mccarthy M.D. on 01/22/2023 at 13:11
[2023-01-22 14:13] LABS: INR 1.4 (0.9-1.3); Prothrombin Time 16.1 SECONDS (10.1-12.7)
[2023-01-22 14:15] LABS: Add Manual Diff / Slide Review NO; Basophils Absolute Auto 0 /uL (0-100); Basophils Percent Auto 0.2 % (0-2); Eosinophils Absolute Auto 0 /uL (0-450); Eosinophils Percent Auto 0.2 % (2-4); Hematocrit 42.2 % (41-53); Hemoglobin 15.1 g/dL (13.5-17.5); Lymphocytes Absolute Auto 400 /uL (1100-4500); Lymphocytes Percent Auto 4.1 % (25-40); Mean Corpuscular HGB Conc 35.6 % (30-36); Mean Corpuscular Hemoglobin 29.7 PG (26-34); Mean Corpuscular Volume 83.3 fL (80-100); Monocytes Absolute Auto 600 /uL (0-900); Neutrophils Absolute Auto 7700 /uL (1500-7000); Neutrophils Percent Auto 88.5 % (50-75); Platelet Count 140 X10^3/uL (150-400); Red Blood Cell Count 5.07 X10^6/uL (4.5-5.9); Red Cell Distribution Width 14.6 % (11.6-14.8); White Blood Cell Count 8.7 X10^3/uL (4.5-11.0)
[2023-01-22 14:16] LABS: PTT Partial Thromboplastin Tim 33 SECONDS (26-36)
[2023-01-22 14:18] LABS: Alanine Aminotransferase 25 IU/L (<50); Albumin 4.2 g/dL (3.5-5.0); Alkaline Phosphatase 135 U/L (38-126); Aspartate Aminotransferase 26 IU/L (17-59); BUN Creatinine Ratio 11.5 (6-22); Bilirubin Total 1.4 mg/dL (0.2-1.3); Blood Urea Nitrogen 21 mg/dL (9-20); Calcium 8.8 mg/dL (8.4-10.2); Carbon Dioxide 23 mmol/L (22-32); Chloride 99 mmol/L (98-107); Creatine Kinase 123 U/L (55-170); Estimated Glomerular Filt Rate 40 mL/min (>60); Globulin 4.2 g/dL (1.7-4.1); Glucose 106 mg/dL (80-110); HEMOLYSIS 21 (0-50); Lipase 70 U/L (23-300); Magnesium 2.3 mg/dL (1.6-2.3); Potassium 4.1 mmol/L (3.4-5.1); Sodium 133 mmol/L (137-145); Total Protein 8.4 g/dL (6.3-8.2)
[2023-01-22 14:30] LABS: Troponin I 0.062 ng/mL (0.01-0.034)
[2023-01-22 14:33] LABS: COVID19 -Nasal RAPID Negative (Negative); Creatine Kinase MB 1.18 ng/mL (<2.37)
[2023-01-22] MEDS: ASPIRIN 81 MG CHEW TAB 324 MG PO (15:02)
--- NOTE | 2023-01-22 15:18 | ED_ITS ---
HPI - Chest Pain General Chief Complaint: Chest Pain Stated Complaint: SOB/chest pain /HX heart problems/high BP Time Seen by Provider: 01/22/23 15:05 Source: patient, family and other (Fiance) Mode of arrival: Ambulatory Limitations: no limitations History of Present Illness HPI narrative: Patient is a 59-year-old male. History of hypertension and heart failure. Is on carvedilol. He did smoke methamphetamine last evening. He is here today because last evening he had chest pain and shortness of breath in his blood pressure was elevated. He states that his chest pain and shortness of breath have now completely resolved. He was evaluated by EMS last night but refused transport to the emergency department. He is not having any swelling in his legs. No abdominal pain. He is having a headache. No vision changes. No other associated symptoms. He is here with his fiancee who is with him last evening and also his sister who did provide some HPI Related Data Home Medications Medication Instructions Recorded Confirmed carvedilol 6.25 mg tablet 6.25 mg PO BID 01/22/23 01/22/23 losartan 25 mg tablet 25 mg PO DAILY 01/22/23 01/22/23 tamsulosin 0.4 mg capsule (Flomax) 0.4 mg PO DAILY 01/22/23 01/22/23 Allergies Allergy/AdvReac Type Severity Reaction Status Date / Time No Known Drug Allergies Allergy Verified 07/07/19 14:30 Review of Systems Review of Systems ROS Unobtainable: All systems reviewed & are unremarkable except as noted in HPI and below Constitutional Constitutional: Reports system reviewed and no additional complaints, except as documented Patient History Medical History (Updated 01/22/23 @ 18:42 by Brown Holland DO) HIV (human immunodeficiency virus infection) Hypertension Social History Smoking Status: Never smoker Smoking Status: Never smoker alcohol intake frequency: 3 or more drinks per day Substance Use Type: does not use Exam Initial Vital Signs Initial Vital Signs: Vital Signs Temperature 98.1 F 01/22/23 13:45 Pulse Rate 104 H 01/22/23 13:45 Respiratory Rate 17 01/22/23 13:45 Blood Pressure 152/101 H 01/22/23 13:45 Pulse Oximetry 96 01/22/23 13:45 Oxygen Delivery Method Room Air 01/22/23 13:45 [facility] Head: normal to inspection and normocephalic Chest Chest: normal inspection of the chest Resp Effort & Inspection: normal respiratory effort Auscultation: clear to auscultation bilaterally Cardio Rate: regular rate Rhythm: regular rhythm GI Inspection: normal to inspection Skin General: no rashes or lesions noted Neuro General: patient alert, patient awake, patient oriented x3 and moves all extremities Extrem General: No edema Psych Appearance: grossly normal and well kempt Scores GCS [place] coma scale eye opening: Spontaneous Aileen coma scale verbal response: Orientated Aileen coma scale motor response: Obey commands [place] coma scale total score: 15 Course Orders Ordered: ED Orders 01/22/23 13:43 EKG-12 Lead Stat 01/22/23 13:47 XR chest 1V Stat 01/22/23 13:55 COVID19 -Nasal RAPID Stat Complete Blood Count AUTO DIFF Stat Comprehensive Metabolic Panel Stat Lipase Stat Magnesium Stat PTT Partial Thromboplastin Aditya Stat Prothrombin Time INR Stat Troponin & CK Cardiac Panel Stat 01/22/23 15:18 EC echo doppler complete Stat BNP [NT-proBNP (BNP-Adult 18+)] Stat 01/22/23 16:45 PTT Partial Thromboplastin Aditya Q6H Troponin & CK Cardiac Panel Stat 01/22/23 21:15 PTT Partial Thromboplastin Aditya Q6H 01/23/23 03:15 PTT Partial Thromboplastin Aditya Q6H 01/23/23 05:00 Hemoglobin and Hematocrit DAILY Platelet Count DAILY 01/23/23 09:15 PTT Partial Thromboplastin Aditya Q6H 01/24/23 05:00 Hemoglobin and Hematocrit DAILY Platelet Count DAILY Heparin Sodium/Dextrose (Heparin Drip) 25,000 unit in 500 mls @ 19.595 mls/hr IV CONT DOMINIC; Protocol Last Admin: 01/22/23 15:49 Dose: 12 units/kg/hr, 19.595 mls/hr Documented By: NATALY Co-signed By: FrankG Discontinued Medications Aspirin (Aspirin 81 Mg Chew Tab) 324 mg PO NOW ONE Stop: 01/22/23 13:48 Last Admin: 01/22/23 15:02 Dose: 324 mg Documented By: NATALY Heparin Sodium (Porcine) (Heparin 5,000 Unit/Ml Vial) 5,000 unit IV NOW ONE Stop: 01/22/23 15:08 Last Admin: 01/22/23 15:47 Dose: 5,000 unit Documented By: NATALY Vital Signs Vital signs: Vital Signs - 8 hr 01/22/23 13:45 01/22/23 15:06 01/22/23 15:06 Temperature 98.1 F Pulse Rate 104 H 105 H Respiratory Rate 17 Blood Pressure 152/101 H 163/104 H Pulse Oximetry 96 96 Oxygen Delivery Method Room Air 01/22/23 15:10 01/22/23 15:10 01/22/23 15:15 Temperature Pulse Rate 104 H 105 H Respiratory Rate 21 16 Blood Pressure 160/106 H Pulse Oximetry 95 96 Oxygen Delivery Method 01/22/23 15:30 01/22/23 15:45 01/22/23 16:00 Temperature Pulse Rate 104 H 104 H 104 H Respiratory Rate 21 24 23 Blood Pressure Pulse Oximetry 95 95 95 Oxygen Delivery Method 01/22/23 16:15 01/22/23 16:30 01/22/23 16:31 Temperature Pulse Rate 103 H 100 H 98 H Respiratory Rate 21 20 19 Blood Pressure Pulse Oximetry 94 95 95 Oxygen Delivery Method 01/22/23 16:31 01/22/23 16:45 Temperature Pulse Rate 99 H Respiratory Rate 23 Blood Pressure 148/96 H Pulse Oximetry 96 Oxygen Delivery Method Room Air MDM - Chest Pain Lab Data Attestation: I reviewed the patient's lab results. 01/22/23 13:55 01/22/23 13:55 Labs: Lab Results 01/22/23 01/22/23 01/22/23 Range/Units 13:55 13:55 13:55 WBC 8.7 (4.5-11.0) X10^3/uL RBC 5.07 (4.5-5.9) X10^6/uL Hgb 15.1 (13.5-17.5) g/dL Hct 42.2 (41-53) % MCV 83.3 (80-100) fL MCH 29.7 (26-34) PG MCHC 35.6 (30-36) % RDW 14.6 (11.6-14.8) % Plt Count 140 L (150-400) X10^3/uL Neut % (Auto) 88.5 H (50-75) % Lymph % (Auto) 4.1 L (25-40) % Cobb % (Auto) 7.0 (3-14) % Eos % (Auto) 0.2 L (2-4) % Baso % (Auto) 0.2 (0-2) % Neut # (Auto) 7700 H (0224-4547) /uL Lymph # (Auto) 400 L (1347-9021) /uL Cobb # (Auto) 600 (0-900) /uL Eos # (Auto) 0 (0-450) /uL Baso # (Auto) 0 (0-100) /uL PT 16.1 H (10.1-12.7) SECONDS INR 1.4 H (0.9-1.3) APTT 33 (26-36) SECONDS Sodium 133 L (137-145) mmol/L Potassium 4.1 (3.4-5.1) mmol/L Chloride 99 (98-107) mmol/L Carbon Dioxide 23 (22-32) mmol/L BUN 21 H (9-20) mg/dL Creatinine 1.82 H (0.66-1.25) mg/dL Estimated GFR 40 L (>60) mL/min BUN/Creatinine Ratio 11.5 (6-22) Glucose 106 (80-110) mg/dL Calcium 8.8 (8.4-10.2) mg/dL Magnesium 2.3 (1.6-2.3) mg/dL Total Bilirubin 1.4 H (0.2-1.3) mg/dL AST 26 (17-59) IU/L ALT 25 (<50) IU/L Alkaline Phosphatase 135 H (38-126) U/L Total Creatine Kinase 123 (55-170) U/L CK-MB (CK-2) 1.18 (<2.37) ng/mL CK-MB (CK-2) Rel Index 1.0 L (1.5-5.0) % Troponin I 0.062 H (0.01-0.034) ng/mL NT-Pro-B Natriuret Pep (<125) pg/mL Total Protein 8.4 H (6.3-8.2) g/dL Albumin 4.2 (3.5-5.0) g/dL Globulin 4.2 H (1.7-4.1) g/dL Albumin/Globulin Ratio 1.0 (1.0-2.8) Lipase 70 (23-300) U/L SARS-CoV-2 (PCR) (Negative) 01/22/23 01/22/23 01/22/23 Range/Units 13:55 15:18 16:45 WBC (4.5-11.0) X10^3/uL RBC (4.5-5.9) X10^6/uL Hgb (13.5-17.5) g/dL Hct (41-53) % MCV (80-100) fL MCH (26-34) PG MCHC (30-36) % RDW (11.6-14.8) % Plt Count (150-400) X10^3/uL Neut % (Auto) (50-75) % Lymph % (Auto) (25-40) % Cobb % (Auto) (3-14) % Eos % (Auto) (2-4) % Baso % (Auto) (0-2) % Neut # (Auto) (1774-4598) /uL Lymph # (Auto) (6037-6076) /uL Cobb # (Auto) (0-900) /uL Eos # (Auto) (0-450) /uL Baso # (Auto) (0-100) /uL PT (10.1-12.7) SECONDS INR (0.9-1.3) APTT 135 H* D (26-36) SECONDS Sodium (137-145) mmol/L Potassium (3.4-5.1) mmol/L Chloride (98-107) mmol/L Carbon Dioxide (22-32) mmol/L BUN (9-20) mg/dL Creatinine (0.66-1.25) mg/dL Estimated GFR (>60) mL/min BUN/Creatinine Ratio (6-22) Glucose (80-110) mg/dL Calcium (8.4-10.2) mg/dL Magnesium (1.6-2.3) mg/dL Total Bilirubin (0.2-1.3) mg/dL AST (17-59) IU/L ALT (<50) IU/L Alkaline Phosphatase (38-126) U/L Total Creatine Kinase (55-170) U/L CK-MB (CK-2) (<2.37) ng/mL CK-MB (CK-2) Rel Index (1.5-5.0) % Troponin I (0.01-0.034) ng/mL NT-Pro-B Natriuret Pep 1640 H (<125) pg/mL Total Protein (6.3-8.2) g/dL Albumin (3.5-5.0) g/dL Globulin (1.7-4.1) g/dL Albumin/Globulin Ratio (1.0-2.8) Lipase (23-300) U/L SARS-CoV-2 (PCR) Negative (Negative) 01/22/23 01/22/23 Range/Units 16:45 21:15 WBC (4.5-11.0) X10^3/uL RBC (4.5-5.9) X10^6/uL Hgb (13.5-17.5) g/dL Hct (41-53) % MCV (80-100) fL MCH (26-34) PG MCHC (30-36) % RDW (11.6-14.8) % Plt Count (150-400) X10^3/uL Neut % (Auto) (50-75) % Lymph % (Auto) (25-40) % Cobb % (Auto) (3-14) % Eos % (Auto) (2-4) % Baso % (Auto) (0-2) % Neut # (Auto) (2735-8033) /uL Lymph # (Auto) (8315-4473) /uL Cobb # (Auto) (0-900) /uL Eos # (Auto) (0-450) /uL Baso # (Auto) (0-100) /uL PT (10.1-12.7) SECONDS INR (0.9-1.3) APTT 31 D (26-36) SECONDS Sodium (137-145) mmol/L Potassium (3.4-5.1) mmol/L Chloride (98-107) mmol/L Carbon Dioxide (22-32) mmol/L BUN (9-20) mg/dL Creatinine (0.66-1.25) mg/dL Estimated GFR (>60) mL/min BUN/Creatinine Ratio (6-22) Glucose (80-110) mg/dL Calcium (8.4-10.2) mg/dL Magnesium (1.6-2.3) mg/dL Total Bilirubin (0.2-1.3) mg/dL AST (17-59) IU/L ALT (<50) IU/L Alkaline Phosphatase (38-126) U/L Total Creatine Kinase 118 (55-170) U/L CK-MB (CK-2) 1.05 (<2.37) ng/mL CK-MB (CK-2) Rel Index 0.9 L (1.5-5.0) % Troponin I 0.053 H (0.01-0.034) ng/mL NT-Pro-B Natriuret Pep (<125) pg/mL Total Protein (6.3-8.2) g/dL Albumin (3.5-5.0) g/dL Globulin (1.7-4.1) g/dL Albumin/Globulin Ratio (1.0-2.8) Lipase (23-300) U/L SARS-CoV-2 (PCR) (Negative) Imaging Data Chest x-ray: Radiologist's Impression: PROCEDURE:? XR CHEST 1V ? INDICATIONS:? chest pain ? TECHNIQUE:? One view of the chest was acquired.? ? COMPARISON:? [facility], , XR CHEST 1V, 07/08/2019, 10:41.? [facility], , XR CHEST 1V, 07/27/2021, 17:57. ? FINDINGS:? ? Surgical changes and devices:? None.? ? Lungs and pleura:? Lungs are clear.? No pleural effusions or pneumothorax.? ? Mediastinum:? The cardiac contours are within normal limits. The aorta demonstra susan calcification and tortuosity. ? Bones and chest wall:? No suspicious bony lesions.? Age-appropriate bony degenerative changes are seen. ? Overlying soft tissues appear unremarkable.? ? ? IMPRESSION:? Portable chest study within normal limits for age. Echocardiogram: Radiologist's Impression: ? [facility] +---------+? [facility]? +---------+ : ? :? [address] ? : ? : : ? :? [place], [place] ? : ? : : ? :? [id number] ? : ? : : ? : ? Phone: [phone]? : ? : +[phone]? [phone]? +---------+ ? Echocardiogram Report + + :Name: DAVISJORDYN ? ? Study Date: 01/22/2023? Height: 70 in ? : :[facility] ? ReadingLocation:? Weight: 180 lb? : : ? Gender: Male? BSA: 2.0 m2 ? ? : :: 1955? Age: 67 yrs ? BP: 160/106 mmHg: :Reason For Study: Chest pain, Elevated troponin? : : ? Performed By: Jessica Stinson ? : :Referring: BROWN HOLLAND ? : + + Interpretation Summary The left ventricle is normal in size. There is moderate concentric left ventricular hypertrophy. The ejection fraction is estimated to be 55-60%. Left ventricular global longitudinal strain average is abnormal at -13.5% (normal being more negative than -20%). There are no focal wall motion abnormalities. Diastolic parameters suggest a relaxation abnormality of the left ventricle, consistent with probable normal filling pressures. ? The right ventricle is normal in size and function. Pulmonary artery pressures cannot be estimated because of the lack of a measurable TR jet velocity but the IVC suggests a CVP of around 3 mmHg. ? Both atria are normal in size. ? Small filamentous lesion, consistent with redundant mitral valve chordae. Also visualized on the prior from 07/09/2019 ? The aortic root is normal size. ? Procedure: ? A two-dimensional transthoracic echocardiogram with color flow and Doppler was performed. The study quality was technically adequate. Comparison is made with the echocardiogram of 07/09/2019. The patient was in a tachycardic rhythm during the exam. Left Ventricle: ? The left ventricle is normal in size. There is moderate concentric left ventricular hypertrophy. The ejection fraction is estimated to be 55-60%. Left ventricular global longitudinal strain average is abnormal at -13.5% (normal being more negative than -20%). There are no focal wall motion abnormalities. Diastolic parameters suggest a relaxation abnormality of the left ventricle, consistent with probable normal filling pressures. Right Ventricle: ? The right ventricle is normal in size and function. Atria: ? Both atria are normal in size. There is no Doppler evidence for an interatrial shunt. Mitral Valve: ? The mitral valve is normal in structure and function. Small filamentous lesion, consistent with redundant mitral valve chordae. Also visualized on the prior from 07/09/2019. There is no mitral regurgitation noted. Aortic Valve: ? The aortic valve is normal in structure and function. No aortic regurgitation is present. Tricuspid Valve: ? The tricuspid valve is normal in structure and function. No tricuspid regurgitation. Pulmonary artery pressures cannot be estimated because of the lack of a measurable TR jet velocity but the IVC suggests a CVP of around 3 mmHg. Pulmonic Valve: ? The pulmonic valve is not well seen, but is grossly normal. There is no pulmonic valvular regurgitation. Great Vessels: ? The aortic root is normal size. The ascending aorta is at the upper limits of normal in size. The aortic arch is normal in size. The IVC is of normal diameter and collapses greater than 50% with a sniff. This suggests a low right atrial pressure of 3 mm Hg. Pericardium/ Pleura ? There is no pericardial effusion. ? MMode/2D Measurements & Calculations LVIDd: 3.9 cm? LVOT diam: 1.8 cm LVIDs: 2.8 cm? Ao root diam: 3.7 cm FS: 30.0 % ? asc Aorta Diam: 3.6 cm EPSS: 0.54 cm? Ao Arch Diam (Prox Trans): 2.9 cm IVSd: 1.1 cm LVPWd: 1.2 cm LV monge. diameter/BSA (cm/m^2): 2.0 LV sys. diameter/BSA (cm/m^2): 1.4 ? LA A2 area: 15.4 cm2 ? RA long axis: 5.2 cm LA A4 area: 15.3 cm2 ? RA area: 19.0 cm2 LA length (vol): 5.2 cm? RA vol: 59.8 ml LA vol: 38.7 ml? RA : 29.9 ml/m2 LA vol index: 19.4 ml/m2 ? IVC diam: 1.4 cm ? RVD1 (basal): 3.4 cm TAPSE: 2.5 cm ? Doppler Measurements & Calculations Ao V2 max: 127.4 cm/sec? LVOT Max Oren: 97.5 cm/sec Ao V2 mean: 88.2 cm/sec? LV V1 max P.8 mmHg Ao max P.5 mmHg? LV V1 VTI: 13.4 cm Ao mean P.4 mmHg ? TOBY(I,D): 2.1 cm2 Ao V2 VTI: 16.6 cm ? TOBY(V,D): 2.0 cm2 ? sev ratio: 0.80 ? TOBY indexed to BSA (cm^2/m^2): 1.0 ? MV E max oren: 49.0 cm/sec? PA V2 max: 70.6 cm/sec MV A max oren: 109.4 cm/sec ? PA V2 mean: 39.9 cm/sec MV E/A: 0.45 ? PA mean P.79 mmHg Med Peak E' Oren: 7.9 cm/sec? PA pr(Accel): 57.6 mmHg E/E' med: 6.2 Lat Peak E' Oren: 3.7 cm/sec E/E' lat: 13.2 E/e' average: 9.7 MV P1/2t: 73.3 msec ? MV P1/2t max oren: 47.4 cm/sec? ? ? SV(LVOT): 34.5 ml MVA(P1/2t): 3.0 cm2 ? Reading Physician:05:23 PM ECG Data Attestation: I personally reviewed and interpreted this ECG as follows: Interpretation: Sinus tachycardia Normal axis LVH Normal QRS ST depressions V5 V6 No ST elevations MDM Narrative Medical decision making narrative: Patient does have ST depressions in V5 and V6 but no ST elevations. Patient did have a troponin greater than the 99th percentile but not above AMI cut off. He is currently asymptomatic. Repeat troponin lower than prior. Given his presentation he was started on heparin. Repeat echocardiogram showed normal ejection fraction and no wall motion abnormalities. His chest x-ray is unremarkable. Had a long discussion with the patient and his fiancee and also his sister at bedside. We had a discussion about his presenting symptoms about his lab tests and also as EKG and my concern about coronary artery disease. I did recommend that we transfer him to a facility that has catheterization capability is we do not have that here at this facility. Patient expressed understanding of this. He has a GCS of 15. Not clinically intoxicated. In my opinion has a capacity to make decisions. Patient's sister and fiance were at bedside for this discussion. Afterwards the patient stated that he still would like to be discharged home. He expressed understanding of the risks of this. He understand that this could potentially lead to worsening cardiovascular issues and even . Patient will contact his electrical high tension tester for a follow-up. He has an appointment with his electrical high tension tester approximately 10 days from now. Patient left Against Medical Advice. Discharge Plan Departure Patient Disposition: Left Against Medical Advice Clinical Impression: Chest pain Activity Restrictions/Additional Instructions: I recommend that you continue to take all of your medications as directed. After our discussion about the risks and benefits and my recommendation being admitted to hospital with cardiovascular capabilities and my concern that you had issues with the heart last evening you opted to be discharged home. You can return to the emergency department at any point to finish your workup and I encourage you to do so. Prescriptions: No Action carvedilol 6.25 mg Tablet 6.25 mg PO BID Rx Instructions: must administer with a meal/food tamsulosin [Flomax] 0.4 mg Capsule 0.4 mg PO DAILY losartan 25 mg Tablet 25 mg PO DAILY Referrals: Miscellaneous,Doctor, MD [Primary Care Provider] - Stand Alone Forms: Against Medical Advice
--- NOTE | 2023-01-22 15:18 | DI.ECHO.S_ITS ---
[facility]---------+ [facility] +---------+ : : [address] : : : : [id number] : : : : Phone: [phone] : [phone] +---------+ Echocardiogram Report + + :Name: JORDYN DAVIS Study Date: 01/22/2023 Height: 70 in : [id number]Location: Weight: 180 lb : : Gender: Male BSA: 2.0 m2 : :: 1955 Age: 67 yrs BP: 160/106 mmHg: :Reason For Study: Chest pain, Elevated troponin : : Performed By: Jessica Stinson : :Referring: BENJAMIN RESENDEZ : + + Interpretation Summary The left ventricle is normal in size. There is moderate concentric left ventricular hypertrophy. The ejection fraction is estimated to be 55-60%. Left ventricular global longitudinal strain average is abnormal at -13.5% (normal being more negative than -20%). There are no focal wall motion abnormalities. Diastolic parameters suggest a relaxation abnormality of the left ventricle, consistent with probable normal filling pressures. The right ventricle is normal in size and function. Pulmonary artery pressures cannot be estimated because of the lack of a measurable TR jet velocity but the IVC suggests a CVP of around 3 mmHg. Both atria are normal in size. Small filamentous lesion, consistent with redundant mitral valve chordae. Also visualized on the prior from 07/09/2019 The aortic root is normal size. Procedure: A two-dimensional transthoracic echocardiogram with color flow and Doppler was performed. The study quality was technically adequate. Comparison is made with the echocardiogram of 07/09/2019. The patient was in a tachycardic rhythm during the exam. Left Ventricle: The left ventricle is normal in size. There is moderate concentric left ventricular hypertrophy. The ejection fraction is estimated to be 55-60%. Left ventricular global longitudinal strain average is abnormal at -13.5% (normal being more negative than -20%). There are no focal wall motion abnormalities. Diastolic parameters suggest a relaxation abnormality of the left ventricle, consistent with probable normal filling pressures. Right Ventricle: The right ventricle is normal in size and function. Atria: Both atria are normal in size. There is no Doppler evidence for an interatrial shunt. Mitral Valve: The mitral valve is normal in structure and function. Small filamentous lesion, consistent with redundant mitral valve chordae. Also visualized on the prior from 07/09/2019. There is no mitral regurgitation noted. Aortic Valve: The aortic valve is normal in structure and function. No aortic regurgitation is present. Tricuspid Valve: The tricuspid valve is normal in structure and function. No tricuspid regurgitation. Pulmonary artery pressures cannot be estimated because of the lack of a measurable TR jet velocity but the IVC suggests a CVP of around 3 mmHg. Pulmonic Valve: The pulmonic valve is not well seen, but is grossly normal. There is no pulmonic valvular regurgitation. Great Vessels: The aortic root is normal size. The ascending aorta is at the upper limits of normal in size. The aortic arch is normal in size. The IVC is of normal diameter and collapses greater than 50% with a sniff. This suggests a low right atrial pressure of 3 mm Hg. Pericardium/ Pleura There is no pericardial effusion. MMode/2D Measurements & Calculations LVIDd: 3.9 cm LVOT diam: 1.8 cm LVIDs: 2.8 cm Ao root diam: 3.7 cm FS: 30.0 % asc Aorta Diam: 3.6 cm EPSS: 0.54 cm Ao Arch Diam (Prox Trans): 2.9 cm IVSd: 1.1 cm LVPWd: 1.2 cm LV monge. diameter/BSA (cm/m^2): 2.0 LV sys. diameter/BSA (cm/m^2): 1.4 LA A2 area: 15.4 cm2 RA long axis: 5.2 cm LA A4 area: 15.3 cm2 RA area: 19.0 cm2 LA length (vol): 5.2 cm RA vol: 59.8 ml LA vol: 38.7 ml RA : 29.9 ml/m2 LA vol index: 19.4 ml/m2 IVC diam: 1.4 cm RVD1 (basal): 3.4 cm TAPSE: 2.5 cm Doppler Measurements & Calculations Ao V2 max: 127.4 cm/sec LVOT Max Oren: 97.5 cm/sec Ao V2 mean: 88.2 cm/sec LV V1 max P.8 mmHg Ao max P.5 mmHg LV V1 VTI: 13.4 cm Ao mean P.4 mmHg TOBY(I,D): 2.1 cm2 Ao V2 VTI: 16.6 cm TOBY(V,D): 2.0 cm2 sev ratio: 0.80 TOBY indexed to BSA (cm^2/m^2): 1.0 MV E max oren: 49.0 cm/sec PA V2 max: 70.6 cm/sec MV A max oren: 109.4 cm/sec PA V2 mean: 39.9 cm/sec MV E/A: 0.45 PA mean P.79 mmHg Med Peak E' Oren: 7.9 cm/sec PA pr(Accel): 57.6 mmHg E/E' med: 6.2 Lat Peak E' Oren: 3.7 cm/sec E/E' lat: 13.2 E/e' average: 9.7 MV P1/2t: 73.3 msec MV P1/2t max oren: 47.4 cm/sec SV(LVOT): 34.5 ml MVA(P1/2t): 3.0 cm2 Reading Physician:05:23 PM
[2023-01-22] MEDS: HEPARIN 5,000 UNIT/ML VIAL 5000 UNIT IV (15:47)
[2023-01-22] MEDS: HEPARIN DRIP 25,000 UNIT/500 ML IV.SOLN 19.595 UNIT IV (15:49)
[2023-01-22 16:16] LABS: PTT Partial Thromboplastin Tim 31 SECONDS (26-36)
[2023-01-22 16:33] LABS: NT-proBNP (BNP-Adult 18+) 1640 pg/mL (<125)
[2023-01-22 17:08] LABS: Creatine Kinase 118 U/L (55-170)
[2023-01-22 17:20] LABS: Troponin I 0.053 ng/mL (0.01-0.034)
[2023-01-22 17:23] LABS: CKMB % Relative Index 0.9 % (1.5-5.0); Creatine Kinase MB 1.05 ng/mL (<2.37)
[2023-01-22 17:40] LABS: PTT Partial Thromboplastin Tim 135 SECONDS (26-36)
== END 2023-01-22 18:56 | disposition left against medical advice (07) ==
PROVIDERS: Emergency Provider Emergency Medicine
DX: R07.9 Chest pain, unspecified (principal); R06.02 Shortness of breath; I10 Essential (primary) hypertension; R74.8 Abnormal levels of other serum enzymes; R79.89 Other specified abnormal findings of blood chemistry; Z20.822 Contact with and (suspected) exposure to COVID-19
CPT/HCPCS: 36415; 71045; 80053; 82550; 82553; 83690; 83735; 83880; 84484; 85025; 85610; 85730; 87635; 93005; 93010; 93306; 96365; 96366; 96375; 99284; C9803; J1644